=== PATIENT | male | born 1990 | race Two or more races ===

== ENCOUNTER 2024-02-03 13:50 | Emergency (ER) | payer OTHER ==
[~2024-02-03] VITALS: Ht 172.7 cm; Wt 83.3 kg
[2024-02-03 14:44] VITALS: BP 129/85; PULSE 99; RESP 17; TEMP 99.3; O2SAT 98
== END 2024-02-03 15:20 | disposition home or self-care (01) ==
LOC: ER 13:55
DX: S93.491A Sprain of other ligament of right ankle, initial encounter (principal); X50.1XXA Overexertion from prolonged static or awkward postures, initial encounter; Y93.89 Activity, other specified; Y92.89 Other specified places as the place of occurrence of the external cause; Y99.0 Civilian activity done for income or pay
CPT/HCPCS: 73610